=== PATIENT | female | born 1950 | race Caucasian/White ===

== ENCOUNTER → 2017-03-05 | Outpatient (CLI) | payer OTHER ==
[~2017-03-05] MED LIST: ASPI-496 PO; CARV12.52 PO; HYDR12.58 PO; ROSU40TA PO
[2017-03-05 12:07] LABS: BLOOD UREA NITROGEN 15 mg/dL (7-18)
[2017-03-05 12:23] LABS: ASPARTATE AMINO TRANSFERASE 25 U/L (15-37)
== END | disposition home or self-care (01) ==
LOC: STAR 11:01
PROVIDERS: ATTEND Thoracic Surgery (Cardiothoracic Vascular Surgery)
DX: Z01.818 Encounter for other preprocedural examination (principal); R94.31 Abnormal electrocardiogram [ECG] [EKG]; E78.00 Pure hypercholesterolemia, unspecified; I10 Essential (primary) hypertension; K44.9 Diaphragmatic hernia without obstruction or gangrene
CPT/HCPCS: 36415; 80053; 93005

== ENCOUNTER 2017-03-13 09:54 | Observation (INO) | payer OTHER ==
[2017-03-05 11:25] VITALS: BP 136/86
[~2017-03-13] VITALS: Ht 175.3 cm; Wt 72.7 kg
[~2017-03-13 09:54] MED LIST changes: +BUPIVACAINE/PF 0.5% ONE
[2017-03-13] MEDS ORDERED: LACTATED RINGERS 1,000 ML IV SCH (10:15)
[2017-03-13] MEDS ORDERED: SODIUM CHLORIDE 0.9% PF 10ML ONE (12:15)
[2017-03-13] MEDS ORDERED: SUFentanil 50 MCG/ML, 1ML ONE (12:15)
[2017-03-13] MEDS ORDERED: MIDAZOLAM 1 MG/ML, 2ML ONE (12:15)
[2017-03-13] MEDS ORDERED: LIDOCAINE-MPF 2% ,5ML ONE (12:16)
[2017-03-13] MEDS ORDERED: PROPOFOL 10 MG/ML, 20ML ONE (12:16)
[2017-03-13] MEDS ORDERED: SCOPOLAMINE PATCH, 1.5MG PATCH.TD72 TD ONE (13:05)
[2017-03-13] MEDS ORDERED: PHENYLEPHRINE 10 MG/ML ONE (13:25)
[2017-03-13] MEDS ORDERED: ROCURONIUM 10 MG/ML,10ML ONE (13:25)
[2017-03-13] MEDS ORDERED: KETAMINE 10 MG/ML, 20ML ONE (13:25)
[2017-03-13] MEDS ORDERED: GLYCOPYRROLATE 0.2MG/1ML, 5ML ONE (13:25)
[2017-03-13] MEDS ORDERED: CEFOTETAN PMX 2GM/50ML 50 ML IVPB ONE (13:25)
[2017-03-13] MEDS ORDERED: DEXAMETHASONE 4 MG/ML, 1ML ONE ×2 (13:33)
[2017-03-13] MEDS ORDERED: BUPIVACAINE/PF-EPI 0.5% 1:200K IM ONE (13:46)
[2017-03-13] MEDS ORDERED: PROMETHAZINE 25 MG/ML, 1ML IV PRN (14:00)
[2017-03-13] MEDS ORDERED: MIDAZOLAM 1 MG/ML, 2ML IV PRN (14:00)
[2017-03-13] MEDS ORDERED: OXYcodone 5 MG/5 ML ORAL.SOL UDC PO PRN (14:00)
[2017-03-13] MEDS ORDERED: FENTANYL PF 100 MCG/2ML IV PRN (14:00)
[2017-03-13] MEDS ORDERED: ACETAMINOPHEN 325 MG TABLET PO PRN (14:00)
[2017-03-13] MEDS ORDERED: MEPERIDINE/PF 25MG/0.5ML IVPush PRN (14:00)
[2017-03-13] MEDS ORDERED: HYDROmorphone 1 MG/ML, 1ML IV PRN (14:00)
[2017-03-13] MEDS ORDERED: hydrALAzine 20 MG/ML, 1ML IV PRN ×2 (14:00→15:00)
[2017-03-13] MEDS ORDERED: LABETALOL 5MG/ML, 20ML IV PRN (14:00)
[2017-03-13] MEDS ORDERED: ONDANSETRON 2MG/ML, 2ML IVPush PRN ×2 (14:00→15:00)
[2017-03-13] MEDS ORDERED: ONDANSETRON 2MG/ML, 2ML ONE ×2 (14:34)
[2017-03-13] MEDS: LACTATED RINGERS 1,000 ML IV SCH ×2 (14:46→22:46)
[2017-03-13] MEDS ORDERED: ACETAMINOPHEN 650 MG SUPP PR PRN (15:00)
[2017-03-13] MEDS ORDERED: DIPHENHYDRAMINE 50 MG/ML, 1ML IV PRN (15:00)
[2017-03-13] MEDS ORDERED: ACETAMINOPHEN 650 MG/20.3 ML UDC PO PRN (15:00)
[2017-03-13] MEDS ORDERED: morphine SULFATE 10 MG/ML, 1ML IV PRN (15:00)
[2017-03-13] MEDS ORDERED: PROMETHAZINE 25 MG/ML, 1ML IM PRN (15:00)
[2017-03-13] MEDS ORDERED: ENALAPRILAT 1.25 MG/ML, 2ML IV PRN (15:00)
[2017-03-13] MEDS ORDERED: LORazepam 2 MG/ML, 1ML IV PRN (15:00)
[2017-03-13] MEDS ORDERED: PROMETHAZINE 12.5 MG SUPP PR PRN (15:00)
[2017-03-13] MEDS ORDERED: KETOROLAC 30 MG/1 ML ONE (15:02)
[2017-03-13] MEDS: KETOROLAC 30 MG/1 ML IV PRN (15:45)
[2017-03-13] MEDS: FAMOTIDINE 20 MG/2 ML IV SCH (17:13)
[2017-03-13 18:53] VITALS: BP 161/101
[2017-03-13 19:47] VITALS: BP 143/81
[2017-03-13] MEDS: HYDROcodone/APAP 7.5-325MG/15ML UDC PO PRN (19:53)
[2017-03-13] MEDS: CARVEDILOL 12.5 MG TABLET PO SCH (20:58)
[2017-03-14] MEDS: HYDROcodone/APAP 7.5-325MG/15ML UDC PO PRN (00:22)
[2017-03-14] MEDS ORDERED: HYDR473S47 PO (01:01)
[2017-03-14 03:33] VITALS: BP 116/67
[2017-03-14] MEDS: FAMOTIDINE 20 MG/2 ML IV SCH (04:28)
[2017-03-14] MEDS: LACTATED RINGERS 1,000 ML IV SCH (04:32)
[2017-03-14 08:00] VITALS: BP 126/57
[2017-03-14] MEDS: CARVEDILOL 12.5 MG TABLET PO SCH (08:57)
[2017-03-14] MEDS ORDERED: ENOXAPARIN 40 MG/0.4 ML SQ SCH (09:00)
[2017-03-14] MEDS: KETOROLAC 30 MG/1 ML IV PRN (09:02)
[2017-03-14 10:13] VITALS: BP 137/74
== END 2017-03-14 10:30 | disposition home or self-care (01) ==
LOC: OUT 09:54 → ORIP 14:46 → 4NOR 16:21 → DCLOUNGE 03-14 10:23
PROVIDERS: ADMIT Thoracic Surgery (Cardiothoracic Vascular Surgery); ATTEND Thoracic Surgery (Cardiothoracic Vascular Surgery)
DX: K44.9 Diaphragmatic hernia without obstruction or gangrene (principal); E78.00 Pure hypercholesterolemia, unspecified; I10 Essential (primary) hypertension; Z86.718 Personal history of other venous thrombosis and embolism
CPT/HCPCS: 43282; 96372; 96374; 96375; 96376; G0378; J0360; J1100; J1650; J1885; J2250; J2370; J2405; J2704; J3490; J7120; Q4116; S0074; S0028